=== PATIENT | male | born 1965 | race African-American/Black ===

== ENCOUNTER 2024-08-12 01:47 | Inpatient (IN) | payer MEDICAID, OTHER ==
[~2024-08-12] VITALS: Ht 180.3 cm; Wt 100.0 kg
[~2024-08-12 01:47] MED LIST: BUSP15 PO; PERCT10 PO; QUET300T2 PO; RISP2TAB45 PO
[2024-08-12] MEDS ORDERED: BUSP15 PO (02:58)
[2024-08-12] MEDS ORDERED: DIPH50CA37 PO (02:58)
[2024-08-12] MEDS ORDERED: RISP2TAB45 PO (02:58)
[2024-08-12] MEDS: HALOPERIDOL 5 MG TABLET PO ONE (03:51)
[2024-08-12] MEDS: LORazepam 2 MG TABLET PO ONE (03:51)
[2024-08-12 09:03] LABS: COVID AG,FIA SOURCE NASAL SWAB
[2024-08-12] MEDS: DiphenhydrAMINE HCL 25 MG CAPSULE PO ONE (09:24)
[2024-08-12 09:25] LABS: HEMATOCRIT 51.3 % (41-53); LYMPHOCYTES # (AUTO) 2.4 K/uL (1.0-4.8); LYMPHOCYTES % (AUTO) 28.6 % (22.0-44.0); MEAN CORPUSCULAR HEMOGLOBIN 32.6 pg (26.0-34.0); MEAN CORPUSCULAR HGB CONC 33.2 G/dL (31.0-37.0); MEAN CORPUSCULAR VOLUME 98 fL (80-100); MONOCYTES # (AUTO) 0.6 K/uL (0.1-1.0); MONOCYTES % (AUTO) 7.3 % (2.0-9.0); NEUTROPHILS # (AUTO) 5.2 K/uL (1.8-7.7); NEUTROPHILS % (AUTO) 62.1 % (40.0-70.0); PLATELET COUNT (AUTO) 261 K/uL (150-450); RED BLOOD CELL COUNT(AUTO) 5.23 MIL/uL (4.50-5.90); RED CELL DISTRIBUTION WIDTH 13.8 % (11.5-14.5); WHITE BLOOD COUNT (AUTO) 8.3 K/uL (4.5-11.0)
[2024-08-12 09:33] LABS: ANION GAP 7 mmol/L (8-16); CALCIUM, TOTAL 9.9 mg/dL (8.8-10.5); CARBON DIOXIDE 30 mmol/L (22-29); CHLORIDE 98 mmol/L (98-107); CREATININE 0.98 mg/dL (0.60-1.30); GLOMERULAR FILTR. RATE CALC > 60 mL/min (>60); GLUCOSE,RANDOM 116 mg/dL (70-110); POTASSIUM 4.2 mmol/L (3.5-5.1); SODIUM SERUM 135 mmol/L (136-145); UREA NITROGEN, BLOOD 12 mg/dL (7-18)
[2024-08-12 09:37] LABS: SARS-COV2 (COVID) ANTIGEN,FIA Negative (Negative)
[2024-08-12 10:10] LABS: ALCOHOL, BLOOD (SERUM) < 3 mg/dL (0-10)
[2024-08-12 13:04] VITALS: BP 136/86; PULSE 61; RESP 18; TEMP 97.5; O2SAT 98
[2024-08-12 15:29] VITALS: BP 128/85; PULSE 59; RESP 19; TEMP 98.2; O2SAT 100
[2024-08-12] MEDS ORDERED: MORPHINE SULFATE 2 MG/ML SYRINGE IVP PRN (15:30)
[2024-08-12] MEDS ORDERED: HYDROCODONE/ACETAMINOPHEN 5-325 MG TABLET PO PRN (15:30)
[2024-08-12] MEDS ORDERED: BISACODYL 10 MG RECTAL RECTAL SUPPOSITORY PR PRN (15:30)
[2024-08-12] MEDS ORDERED: ZOLPIDEM TARTRATE 5 MG TABLET PO PRN (15:30)
[2024-08-12] MEDS ORDERED: MAGNESIUM HYDROXIDE SUSPENSION 30 ML UDCUP PO PRN (15:30)
[2024-08-12] MEDS ORDERED: ACETAMINOPHEN 325 MG TABLET PO PRN (15:30)
[2024-08-12] MEDS ORDERED: ONDANSETRON HCL 4 MG/2 ML VIAL IVP PRN (15:30)
[2024-08-12] MEDS: MethylPREDNISolone SOD SUCC 40 MG/ML VIAL IVP SCH (16:14)
[2024-08-12] MEDS: HEPARIN SODIUM,PORCINE 5,000 UNITS/ML VIAL SQ SCH (16:14)
[2024-08-12] MEDS: DiphenhydrAMINE HCL 50 MG/ML VIAL IVP SCH (16:16)
[2024-08-12 20:51] VITALS: BP 119/86; PULSE 77; RESP 19; TEMP 98.3; O2SAT 95
[2024-08-12] MEDS: DOCUSATE SODIUM 100 MG CAPSULE PO SCH (21:00)
[2024-08-12] MEDS: FAMOTIDINE 20 MG/2 ML VIAL IVP SCH (21:04)
[2024-08-13] VITALS (7 sets, daily range): BP systolic 123–181; BP diastolic 74–91; PULSE 63–92; RESP 17–18; TEMP 98.2–98.5; O2SAT 81–100
[2024-08-13 06:56] LABS: ANION GAP 8 mmol/L (8-16); CALCIUM, TOTAL 9.2 mg/dL (8.8-10.5); CARBON DIOXIDE 27 mmol/L (22-29); CHLORIDE 102 mmol/L (98-107); CREATININE 1.09 mg/dL (0.60-1.30); GLOMERULAR FILTR. RATE CALC > 60 mL/min (>60); GLUCOSE,RANDOM 123 mg/dL (70-110); POTASSIUM 4.2 mmol/L (3.5-5.1); SODIUM SERUM 137 mmol/L (136-145); UREA NITROGEN, BLOOD 16 mg/dL (7-18)
[2024-08-13 07:09] LABS: WHITE BLOOD COUNT (AUTO) 7.4 K/uL (4.5-11.0)
[2024-08-13 07:10] LABS: BASOPHILS % (AUTO) 0.2 % (0.0-2.0); EOSINOPHILS % (AUTO) 0 % (1.0-6.0); HEMATOCRIT 44.8 % (41-53); HEMOGLOBIN 15.5 g/dL (13.5-17.5); LYMPHOCYTES % (AUTO) 8.8 % (22.0-44.0); MEAN CORPUSCULAR HEMOGLOBIN 33.3 pg (26.0-34.0); MEAN CORPUSCULAR HGB CONC 34.7 G/dL (31.0-37.0); MEAN CORPUSCULAR VOLUME 96 fL (80-100); MONOCYTES % (AUTO) 1.2 % (2.0-9.0); NEUTROPHILS # (AUTO) 6.7 K/uL (1.8-7.7); NEUTROPHILS % (AUTO) 89.8 % (40.0-70.0); PLATELET COUNT (AUTO) 281 K/uL (150-450); RED BLOOD CELL COUNT(AUTO) 4.66 MIL/uL (4.50-5.90); RED CELL DISTRIBUTION WIDTH 13.6 % (11.5-14.5)
[2024-08-13 07:11] LABS: LYMPHOCYTES # (AUTO) 0.7 K/uL (1.0-4.8); MONOCYTES # (AUTO) 0.1 K/uL (0.1-1.0); RBC MORPHOLOGY COMMENT NORMAL RBC MORPH
[2024-08-13] MEDS: PANTOPRAZOLE SODIUM 40 MG DR TABLET PO SCH (09:28)
[2024-08-13] MEDS: LURASIDONE HCL 40 MG TABLET PO SCH (18:35)
[2024-08-14 00:19] VITALS: BP 160/60; PULSE 60; RESP 18; TEMP 98.7; O2SAT 99
[2024-08-14 04:33] VITALS: BP 148/91; PULSE 56; RESP 16; TEMP 98.1; O2SAT 99
[2024-08-14 07:06] LABS: BASOPHILS % (AUTO) 0.5 % (0.0-2.0); EOSINOPHILS % (AUTO) 0 % (1.0-6.0); HEMATOCRIT 43.5 % (41-53); HEMOGLOBIN 14.4 g/dL (13.5-17.5); LYMPHOCYTES # (AUTO) 0.8 K/uL (1.0-4.8); LYMPHOCYTES % (AUTO) 6.1 % (22.0-44.0); MEAN CORPUSCULAR HEMOGLOBIN 32.3 pg (26.0-34.0); MEAN CORPUSCULAR HGB CONC 33.2 G/dL (31.0-37.0); MEAN CORPUSCULAR VOLUME 97 fL (80-100); MONOCYTES # (AUTO) 0.4 K/uL (0.1-1.0); MONOCYTES % (AUTO) 3.3 % (2.0-9.0); NEUTROPHILS # (AUTO) 11.6 K/uL (1.8-7.7); NEUTROPHILS % (AUTO) 90.1 % (40.0-70.0); PLATELET COUNT (AUTO) 282 K/uL (150-450); RED BLOOD CELL COUNT(AUTO) 4.47 MIL/uL (4.50-5.90); RED CELL DISTRIBUTION WIDTH 13.6 % (11.5-14.5); WHITE BLOOD COUNT (AUTO) 12.9 K/uL (4.5-11.0)
[2024-08-14 07:16] LABS: ANION GAP 7 mmol/L (8-16); CALCIUM, TOTAL 9.1 mg/dL (8.8-10.5); CARBON DIOXIDE 28 mmol/L (22-29); CHLORIDE 102 mmol/L (98-107); CREATININE 1.08 mg/dL (0.60-1.30); GLOMERULAR FILTR. RATE CALC > 60 mL/min (>60); GLUCOSE,RANDOM 145 mg/dL (70-110); SODIUM SERUM 137 mmol/L (136-145); UREA NITROGEN, BLOOD 21 mg/dL (7-18)
[2024-08-14 07:32] LABS: RBC MORPHOLOGY COMMENT NORMAL RBC MORPH
[2024-08-14 07:50] VITALS: BP 150/76; PULSE 54; RESP 18; TEMP 97.9; O2SAT 98
[2024-08-14 11:07] VITALS: BP 135/96; PULSE 67; RESP 18; TEMP 98.6; O2SAT 99
[2024-08-14] MEDS ORDERED: PRED-729 PO (11:28)
[2024-08-14] MEDS ORDERED: LURA40TA2 PO (11:28)
[2024-08-14] MEDS ORDERED: FAMO20 PO (11:28)
== END 2024-08-14 11:30 | disposition home or self-care (01) | DRG 811 ==
LOC: EMS 01:47 → EDH 09:14 → 5S 13:00
PROVIDERS: ADMIT Internal Medicine; ATTEND Internal Medicine
DX: T78.3XXA Angioneurotic edema, initial encounter (principal); F20.0 Paranoid schizophrenia; E66.9 Obesity, unspecified; R73.9 Hyperglycemia, unspecified; Z20.822 Contact with and (suspected) exposure to COVID-19; F60.0 Paranoid personality disorder; G89.29 Other chronic pain; Z59.00 Homelessness unspecified; Z87.891 Personal history of nicotine dependence; Z68.30 Body mass index [BMI] 30.0-30.9, adult; Z65.3 Problems related to other legal circumstances
CPT/HCPCS: 80048; 85025; 92610; 99285; G0480; J1200; J1644; J3490

== ENCOUNTER 2024-09-27 08:19 | Inpatient (IN) | payer MEDICAID ==
[~2024-09-27] VITALS: Ht 180.3 cm; Wt 95.0 kg
[~2024-09-27 08:19] MED LIST changes: +ACET-66 PO; +ATOR-2 PO; -BUSP15 PO; +FLUT16H NASAL; +LIDO700A30 TD; +LISI10TA24 PO; +LURA40TA2 PO; -PERCT10 PO; -QUET300T2 PO; -RISP2TAB45 PO
[2024-09-27] MEDS: DEXAMETHASONE SOD PHOS 4 MG/ML 5 ML VIAL IM ONE (10:24)
[2024-09-27] MEDS: DiphenhydrAMINE HCL 50 MG/ML VIAL IM ONE (10:24)
[2024-09-27 10:29] LABS: BASOPHILS % (AUTO) 1.1 % (0.0-2.0); EOSINOPHILS % (AUTO) 1.5 % (1.0-6.0); HEMOGLOBIN 14.3 g/dL (13.5-17.5); LYMPHOCYTES # (AUTO) 3.2 K/uL (1.0-4.8); LYMPHOCYTES % (AUTO) 38.2 % (22.0-44.0); MEAN CORPUSCULAR HEMOGLOBIN 31.9 pg (26.0-34.0); MEAN CORPUSCULAR HGB CONC 33.3 G/dL (31.0-37.0); MEAN CORPUSCULAR VOLUME 96 fL (80-100); MONOCYTES # (AUTO) 0.8 K/uL (0.1-1.0); MONOCYTES % (AUTO) 10.1 % (2.0-9.0); NEUTROPHILS # (AUTO) 4.1 K/uL (1.8-7.7); NEUTROPHILS % (AUTO) 49.1 % (40.0-70.0); PLATELET COUNT (AUTO) 389 K/uL (150-450); RED BLOOD CELL COUNT(AUTO) 4.49 MIL/uL (4.50-5.90); RED CELL DISTRIBUTION WIDTH 13.4 % (11.5-14.5); WHITE BLOOD COUNT (AUTO) 8.3 K/uL (4.5-11.0)
[2024-09-27 10:47] LABS: ANION GAP 4 mmol/L (8-16); CALCIUM, TOTAL 8.7 mg/dL (8.8-10.5); CARBON DIOXIDE 32 mmol/L (22-29); CHLORIDE 104 mmol/L (98-107); CREATININE 0.95 mg/dL (0.60-1.30); GLOMERULAR FILTR. RATE CALC > 60 mL/min (>60); GLUCOSE,RANDOM 98 mg/dL (70-110); POTASSIUM 4.1 mmol/L (3.5-5.1); SODIUM SERUM 140 mmol/L (136-145); UREA NITROGEN, BLOOD 10 mg/dL (7-18)
[2024-09-27 11:58] LABS: TROPONIN I-HIGH SENSITIVITY 167 ng/L (<76)
[2024-09-27] MEDS: NITROGLYCERIN 2% (1 GM=INCH) OINTMENT PACKET TP ONE (12:55)
[2024-09-27] MEDS: ONDANSETRON HCL 4 MG/2 ML VIAL IVP ONE (12:56)
[2024-09-27] MEDS: MORPHINE SULFATE 2 MG/ML SYRINGE IVP ONE (12:57)
[2024-09-27] MEDS ORDERED: ACETAMINOPHEN 325 MG TABLET PO PRN (14:15)
[2024-09-27] MEDS ORDERED: BISACODYL 10 MG RECTAL RECTAL SUPPOSITORY PR PRN (14:15)
[2024-09-27] MEDS ORDERED: ZOLPIDEM TARTRATE 5 MG TABLET PO PRN (14:15)
[2024-09-27] MEDS ORDERED: MORPHINE SULFATE 2 MG/ML SYRINGE IVP PRN (14:15)
[2024-09-27] MEDS ORDERED: ONDANSETRON HCL 4 MG/2 ML VIAL IVP PRN (14:15)
[2024-09-27] MEDS ORDERED: MAGNESIUM HYDROXIDE SUSPENSION 30 ML UDCUP PO PRN (14:15)
[2024-09-27] MEDS: AmLODIPine BESYLATE 5 MG TABLET PO SCH (14:27)
[2024-09-27] MEDS: HEPARIN SODIUM,PORCINE 5,000 UNITS/ML VIAL SQ SCH (16:00)
[2024-09-27] MEDS: MethylPREDNISolone SOD SUCC 125 MG/2 ML VIAL IVP SCH (16:04)
[2024-09-27] MEDS: FAMOTIDINE 20 MG TABLET PO SCH (16:30)
[2024-09-27 17:00] VITALS: BP 139/87; PULSE 66; RESP 17; TEMP 98; O2SAT 100
[2024-09-27] MEDS: HYDROCODONE/ACETAMINOPHEN 5-325 MG TABLET PO PRN (17:17)
[2024-09-27] MEDS: LURASIDONE HCL 40 MG TABLET PO SCH (18:16)
[2024-09-27 20:22] VITALS: BP 136/84; PULSE 79; RESP 18; TEMP 98.3; O2SAT 97
[2024-09-27] MEDS: DOCUSATE SODIUM 100 MG CAPSULE PO SCH (21:06)
[2024-09-27] MEDS: ATORVASTATIN CALCIUM 40 MG TABLET PO SCH (21:07)
[2024-09-27] MEDS: DiphenhydrAMINE HCL 50 MG/ML VIAL IVP SCH (21:07)
[2024-09-28] VITALS: BP 132/78; PULSE 83; RESP 17; TEMP 98.1; O2SAT 98
[2024-09-28 04:00] VITALS: BP 140/75; PULSE 65; RESP 17; TEMP 98; O2SAT 97
[2024-09-28 06:44] LABS: BASOPHILS % (AUTO) 0.9 % (0.0-2.0); EOSINOPHILS % (AUTO) 0 % (1.0-6.0); HEMATOCRIT 39.1 % (41-53); HEMOGLOBIN 13.4 g/dL (13.5-17.5); LYMPHOCYTES % (AUTO) 8.8 % (22.0-44.0); MEAN CORPUSCULAR HEMOGLOBIN 32.5 pg (26.0-34.0); MEAN CORPUSCULAR HGB CONC 34.1 G/dL (31.0-37.0); MEAN CORPUSCULAR VOLUME 95 fL (80-100); MONOCYTES # (AUTO) 0.2 K/uL (0.1-1.0); MONOCYTES % (AUTO) 1.6 % (2.0-9.0); NEUTROPHILS # (AUTO) 9.8 K/uL (1.8-7.7); PLATELET COUNT (AUTO) 376 K/uL (150-450); RED BLOOD CELL COUNT(AUTO) 4.11 MIL/uL (4.50-5.90); RED CELL DISTRIBUTION WIDTH 13.4 % (11.5-14.5)
[2024-09-28 07:03] LABS: ANION GAP 8 mmol/L (8-16); CALCIUM, TOTAL 8.7 mg/dL (8.8-10.5); CARBON DIOXIDE 27 mmol/L (22-29); CHLORIDE 102 mmol/L (98-107); CREATININE 0.99 mg/dL (0.60-1.30); GLOMERULAR FILTR. RATE CALC > 60 mL/min (>60); GLUCOSE,RANDOM 165 mg/dL (70-110); POTASSIUM 4.2 mmol/L (3.5-5.1); SODIUM SERUM 137 mmol/L (136-145); UREA NITROGEN, BLOOD 16 mg/dL (7-18)
[2024-09-28 07:05] LABS: NEUTROPHILS % (AUTO) 88.7 % (40.0-70.0)
[2024-09-28 07:17] LABS: TROPONIN I-HIGH SENSITIVITY 124 ng/L (<76)
[2024-09-28 07:18] VITALS: BP 143/100; PULSE 70; RESP 18; TEMP 98; O2SAT 98
[2024-09-28] MEDS: FLUTICASONE PROPIONATE 50 MCG/SPRAY 16 GM NASAL SPRAY NASAL SCH (09:00)
[2024-09-28] MEDS: PANTOPRAZOLE SODIUM 40 MG DR TABLET PO SCH (09:59)
[2024-09-28 11:56] VITALS: BP 139/88; PULSE 69; RESP 18; TEMP 98; O2SAT 97
[2024-09-28] MEDS ORDERED: DIPH-1243 PO (15:22)
[2024-09-28] MEDS ORDERED: PRED-729 PO (15:22)
[2024-09-28] MEDS ORDERED: FAMO20 PO (15:22)
[2024-09-28] MEDS ORDERED: AMLO-257 PO (15:22)
[2024-09-28] MEDS: PredniSONE 20 MG TABLET PO ONE (15:30)
== END 2024-09-28 16:00 | disposition home or self-care (01) | DRG 816 ==
LOC: EMS 08:19 → EDH 14:19 → 5S 15:00
PROVIDERS: ADMIT Internal Medicine; ATTEND Internal Medicine
DX: T63.301A Toxic effect of unspecified spider venom, accidental (unintentional), initial encounter (principal); I47.20 Ventricular tachycardia, unspecified; T78.3XXA Angioneurotic edema, initial encounter; F20.9 Schizophrenia, unspecified; J30.9 Allergic rhinitis, unspecified; E78.5 Hyperlipidemia, unspecified; I10 Essential (primary) hypertension; R79.89 Other specified abnormal findings of blood chemistry; F31.9 Bipolar disorder, unspecified; F17.210 Nicotine dependence, cigarettes, uncomplicated; Z79.899 Other long term (current) drug therapy; F99 Mental disorder, not otherwise specified; Y92.9 Unspecified place or not applicable
CPT/HCPCS: 71045; 80048; 83735; 84484; 85025; 93005; 93306; 99285; G0378; J1100; J1200; J1644; J2270; J2405; J2919; 36415-L1; 36415-TC

== ENCOUNTER 2025-06-14 18:24 | Emergency (ER) | payer MEDICAID, OTHER ==
[~2025-06-14] VITALS: Ht 177.8 cm; Wt 96.8 kg
[~2025-06-14 18:24] MED LIST changes: -ACET-66 PO; +AMLO-257 PO; +ASPI-1444 PO; +GABA-1181 PO; +HYDR-4808 PO; -LISI10TA24 PO; +LISI20TA24 PO; +METH-811 PO
[2025-06-14 18:32] VITALS: BP 128/88; PULSE 86; RESP 18; TEMP 98.4; O2SAT 98
[2025-06-14] MEDS ORDERED: KETOROLAC TROMETHAMINE 30 MG/ML VIAL IM ONE (21:00)
[2025-06-14] MEDS: KETOROLAC TROMETHAMINE 15 MG/ML VIAL IM ONE (21:17)
[2025-06-14] MEDS: LIDOCAINE 5% TRANSDERMAL PATCH TD ONE (21:18)
[2025-06-14] MEDS ORDERED: IBUP-1492 PO (21:50)
[2025-06-14] MEDS ORDERED: CYCL-448 PO (21:50)
== END 2025-06-14 22:14 | disposition home or self-care (01) ==
LOC: EMS 18:24
DX: S39.012A Strain of muscle, fascia and tendon of lower back, initial encounter (principal); F20.9 Schizophrenia, unspecified; F17.210 Nicotine dependence, cigarettes, uncomplicated; F12.90 Cannabis use, unspecified, uncomplicated; Z79.82 Long term (current) use of aspirin; Z79.899 Other long term (current) drug therapy; V49.40XA Driver injured in collision with unspecified motor vehicles in traffic accident, initial encounter; Y93.89 Activity, other specified; Y92.410 Unspecified street and highway as the place of occurrence of the external cause; Y99.8 Other external cause status
CPT/HCPCS: 99283; 96372; J1885

== ENCOUNTER 2025-06-23 13:01 | Emergency (ER) | payer MEDICAID, OTHER ==
[~2025-06-23] VITALS: Ht 183.5 cm; Wt 84.1 kg
[~2025-06-23 13:01] MED LIST changes: +CYCL-448 PO; +IBUP-1492 PO
[2025-06-23 13:20] VITALS: TEMP 98.5
[2025-06-23 14:36] LABS: PLATELET COUNT (AUTO) 302 K/uL (150-450); RED BLOOD CELL COUNT(AUTO) 5.04 MIL/uL (4.50-5.90); RED CELL DISTRIBUTION WIDTH 13.4 % (11.5-14.5); WHITE BLOOD COUNT (AUTO) 12.0 K/uL (4.5-11.0)
[2025-06-23 14:38] LABS: CALCIUM, TOTAL 9.0 mg/dL (8.8-10.5); CREATININE 0.66 mg/dL (0.60-1.30); GLOMERULAR FILTR. RATE CALC > 60 mL/min (>60); GLUCOSE,RANDOM 117 mg/dL (70-110); SODIUM SERUM 131 mmol/L (136-145); UREA NITROGEN, BLOOD 7 mg/dL (7-18)
[2025-06-23] MEDS: KETOROLAC TROMETHAMINE 30 MG/ML VIAL IM ONE (14:41)
[2025-06-23 14:50] LABS: TROPONIN I-HIGH SENSITIVITY 243 ng/L (<76)
[2025-06-23 15:21] LABS: APPEARANCE,URINE CLEAR (CLEAR); GLUCOSE, URINE (UA) NEGATIVE (NEGATIVE); LEUKOCYTE ESTERASE ,URINE NEGATIVE (NEGATIVE); NITRATE,URINE NEGATIVE (NEGATIVE); OCCULT BLOOD,URINE TRACE (NEGATIVE); SPECIFIC GRAVITIY, URINE 1.002 (1.003-1.030)
[2025-06-23 15:26] LABS: ALCOHOL, URINE DRUG SCREEN NEGATIVE (NEGATIVE); AMPHET/METH SCREEN,URINE POSITIVE (NEGATIVE); BARBITURATE SCREEN, URINE NEGATIVE (NEGATIVE); CANNABINOID SCREEN,URINE POSITIVE (NEGATIVE); COCAINE SCREEN,URINE POSITIVE (NEGATIVE); METHADONE SCREEN, URINE NEGATIVE (NEGATIVE)
[2025-06-23 15:35] VITALS: BP 163/103; PULSE 68; RESP 19; O2SAT 99
[2025-06-23 15:48] LABS: PH,URINE DRUG SCREEN 6.5 (5.0-8.0)
[2025-06-23 15:58] LABS: SQUAMOUS EPITHELIAL CELL,UR Rare /LPF (None Seen)
[2025-06-23 17:03] LABS: TROPONIN I-HIGH SENSITIVITY 238 ng/L (<76)
== END 2025-06-23 17:44 | disposition home or self-care (01) ==
LOC: EMS 13:08
DX: R33.9 Retention of urine, unspecified (principal); R07.89 Other chest pain; F19.10 Other psychoactive substance abuse, uncomplicated; M54.9 Dorsalgia, unspecified; F20.9 Schizophrenia, unspecified; F12.90 Cannabis use, unspecified, uncomplicated; F17.210 Nicotine dependence, cigarettes, uncomplicated; G89.29 Other chronic pain; N50.811 Right testicular pain; Z46.6 Encounter for fitting and adjustment of urinary device; Z79.82 Long term (current) use of aspirin; Z79.899 Other long term (current) drug therapy
CPT/HCPCS: 80048; 81001; 84484; 85025; 36415; 71045; 76870; 99285; 93005; 51702; 96372; 80307; J1885

== ENCOUNTER 2025-06-25 18:11 | Emergency (ER) | payer MEDICAID, OTHER ==
[~2025-06-25] VITALS: Ht 182.9 cm; Wt 100.0 kg
[2025-06-25] MEDS ORDERED: BUDE10.2 IH (18:54)
[2025-06-25 19:05] VITALS: BP 139/77; PULSE 86; RESP 18; TEMP 98.3; O2SAT 98
[2025-06-25] MEDS ORDERED: HYDR-4062 PO (19:17)
[2025-06-25] MEDS: HYDROCODONE/ACETAMINOPHEN 5-325 MG TABLET PO ONE (19:17)
== END 2025-06-25 21:16 | disposition home or self-care (01) ==
LOC: EMS 18:11
DX: R33.9 Retention of urine, unspecified (principal); Z46.6 Encounter for fitting and adjustment of urinary device; F12.90 Cannabis use, unspecified, uncomplicated; F17.210 Nicotine dependence, cigarettes, uncomplicated; F20.9 Schizophrenia, unspecified; Z79.51 Long term (current) use of inhaled steroids; Z79.82 Long term (current) use of aspirin; Z79.899 Other long term (current) drug therapy
CPT/HCPCS: 51702; 99284; Z7502; Z7610

== ENCOUNTER 2025-06-27 15:34 | Emergency (ER) | payer MEDICAID, OTHER ==
[~2025-06-27] VITALS: Ht 179.1 cm; Wt 96.4 kg
[~2025-06-27 15:34] MED LIST changes: +BUDE10.2 IH; +HYDR-4062 PO; -METH-811 PO
[2025-06-27 15:42] VITALS: TEMP 98.1
[2025-06-27 16:08] LABS: APPEARANCE,URINE CLEAR (CLEAR); GLUCOSE, URINE (UA) NEGATIVE (NEGATIVE); LEUKOCYTE ESTERASE ,URINE LARGE (NEGATIVE); NITRATE,URINE NEGATIVE (NEGATIVE); OCCULT BLOOD,URINE MODERATE (NEGATIVE); SPECIFIC GRAVITIY, URINE 1.015 (1.003-1.030)
[2025-06-27 17:26] LABS: PLATELET COUNT (AUTO) 288 K/uL (150-450); RED BLOOD CELL COUNT(AUTO) 4.53 MIL/uL (4.50-5.90); RED CELL DISTRIBUTION WIDTH 13.4 % (11.5-14.5); WHITE BLOOD COUNT (AUTO) 8.0 K/uL (4.5-11.0)
[2025-06-27 17:34] LABS: CALCIUM, TOTAL 9.0 mg/dL (8.8-10.5); CREATININE 0.70 mg/dL (0.60-1.30); GLOMERULAR FILTR. RATE CALC > 60 mL/min (>60); GLUCOSE,RANDOM 104 mg/dL (70-110); SODIUM SERUM 138 mmol/L (136-145); UREA NITROGEN, BLOOD 7 mg/dL (7-18)
[2025-06-27 18:26] LABS: SQUAMOUS EPITHELIAL CELL,UR Rare /LPF (None Seen)
[2025-06-27] MEDS: LIDOCAINE 2% 6 ML JELLY TP ONE (19:18)
[2025-06-27 19:43] VITALS: BP 158/92; PULSE 60; RESP 16; O2SAT 100
== END 2025-06-27 19:59 | disposition home or self-care (01) ==
LOC: EMS 15:36
DX: R33.9 Retention of urine, unspecified (principal); F20.9 Schizophrenia, unspecified; F12.90 Cannabis use, unspecified, uncomplicated; F17.210 Nicotine dependence, cigarettes, uncomplicated; Z98.890 Other specified postprocedural states; Z79.51 Long term (current) use of inhaled steroids; Z79.82 Long term (current) use of aspirin; Z79.899 Other long term (current) drug therapy
CPT/HCPCS: 51702; 80048; 81001; 85025; 87077; 87086; 87186; 99284